=== PATIENT | female | born 1970 | race Hispanic/Latino ===

== ENCOUNTER 2017-10-08 23:14 | Emergency (ER) | payer MEDICAID, OTHER ==
[2017-10-09] MEDS ORDERED: ONDANSETRON HCL MDV 20ML 2 MG/ML VIAL ONE (00:17)
[2017-10-09] MEDS ORDERED: MORPHINE SULFATE 8 MG/ML VIAL ONE (00:18)
[2017-10-09 00:26] LABS: BASOPHILS % (AUTO) 0.3 % (0.0-5.0); EOSINOPHILS % (AUTO) 1.2 % (0.0-8.0); HEMATOCRIT 31.5 % (36-48); LYMPHOCYTES % (AUTO) 26.7 % (21.0-51.0); MEAN CORPUSCULAR HEMOGLOBIN 25.3 pg (27.0-33.0); MEAN CORPUSCULAR HGB CONC 32.2 g/dL (32.0-36.0); MEAN CORPUSCULAR VOLUME 78.3 fL (79-99); MONOCYTES % (AUTO) 7.3 % (3.0-13.0); NEUTROPHILS % (AUTO) 64.5 % (40.0-77.0); PLATELET COUNT (AUTO) 259 K/uL (130-400); RED BLOOD CELL COUNT(AUTO) 4.02 MIL/uL (4.00-5.50); WHITE BLOOD COUNT (AUTO) 12.7 K/uL (4.8-10.8)
[2017-10-09 00:31] LABS: CREATININE 0.7 mg/dL (0.5-1.5); POTASSIUM 3.4 mmol/L (3.5-5.1)
[2017-10-09 00:34] LABS: INR 0.91 (0.85-1.15); PARTIAL THROMBOPLASTIN TIME 26.1 SEC (26.3-35.5); PROTHROMBIN TIME 9.6 SEC (9.6-11.6)
[2017-10-09 00:35] LABS: ALBUMIN 3.4 g/dL (3.5-5.0); BILIRUBIN,TOTAL 0.1 mg/dL (0.2-1.0); TOTAL PROTEIN, SERUM 7.3 g/dL (6.0-8.3)
[2017-10-09] MEDS ORDERED: POTASSIUM BICARB/CIT AC 25 MEQ TABLET.EFF ONE (01:28)
== END 2017-10-09 02:50 | disposition home or self-care (01) ==
LOC: EDH 23:14
DX: R51 Headache (principal); M54.2 Cervicalgia; R79.1 Abnormal coagulation profile
CPT/HCPCS: 36415; 70450; 80053; 83690; 85025; 85610; 85730; 96374; 96375; 99285; J2270

== ENCOUNTER 2017-10-10 12:48 | Emergency (ER) | payer MEDICAID, OTHER | END 2017-10-10 13:33 | disposition home or self-care (01) | LOC: EDH 12:48 | DX: G51.0 Bell's palsy (principal); Z79.899 Other long term (current) drug therapy; Z98.51 Tubal ligation status ==

== ENCOUNTER 2020-06-11 23:51 | Emergency (ER) | payer MEDICAID, OTHER ==
[2020-06-12 01:03] LABS: BASOPHILS % (AUTO) 0.4 % (0.0-5.0); EOSINOPHILS % (AUTO) 1.4 % (0.0-8.0); LYMPHOCYTES % (AUTO) 27.3 % (21.0-51.0); MEAN CORPUSCULAR HEMOGLOBIN 24.2 pg (27.0-33.0); MEAN CORPUSCULAR HGB CONC 30.9 g/dL (32.0-36.0); MEAN CORPUSCULAR VOLUME 78.5 fL (79-99); MONOCYTES % (AUTO) 7.2 % (3.0-13.0); NEUTROPHILS % (AUTO) 63.2 % (40.0-77.0); PLATELET COUNT (AUTO) 259 K/uL (130-400); RED BLOOD CELL COUNT(AUTO) 4.46 MIL/uL (4.00-5.50); RED CELL DISTRIBUTION WIDTH 20.9 % (11.0-15.5)
[2020-06-12 01:12] LABS: CREATININE 0.8 mg/dL (0.5-1.5); POTASSIUM 4.2 mmol/L (3.5-5.1)
[2020-06-12 01:16] LABS: ALBUMIN 3.5 g/dL (3.5-5.0); BILIRUBIN,TOTAL 0.1 mg/dL (0.2-1.0); TOTAL PROTEIN, SERUM 7.5 g/dL (6.0-8.3)
[2020-06-12 01:20] LABS: AMPHET/METH SCREEN,URINE NEGATIVE (NEGATIVE); BARBITURATE SCREEN, URINE NEGATIVE (NEGATIVE); BENZODIAZEPINES SCREEN,URINE NEGATIVE (NEGATIVE); CANNABINOID SCREEN,URINE NEGATIVE (NEGATIVE); COCAINE SCREEN,URINE NEGATIVE (NEGATIVE); OPIATE SCREEN,URINE NEGATIVE (NEGATIVE); PHENCYCLIDINE SCREEN,URINE NEGATIVE (NEGATIVE)
[2020-06-12] MEDS ORDERED: DEXAMETHASONE SOD PHOSPHATE 10MG/ML 1ML VIAL ONE (01:25)
== END 2020-06-12 03:46 | disposition home or self-care (01) ==
LOC: EDH 23:51
DX: S46.012A Strain of muscle(s) and tendon(s) of the rotator cuff of left shoulder, initial encounter (principal); S46.812A Strain of other muscles, fascia and tendons at shoulder and upper arm level, left arm, initial encounter; X58.XXXA Exposure to other specified factors, initial encounter; Y93.89 Activity, other specified; Y92.89 Other specified places as the place of occurrence of the external cause; Y99.8 Other external cause status
CPT/HCPCS: 71045; 73030; 93005; 96374; 99284; J1100

== ENCOUNTER 2021-09-01 12:04 | Emergency (ER) | payer OTHER ==
[~2021-09-01] VITALS: Ht 154.9 cm; Wt 99.8 kg
[2021-09-01] MEDS ORDERED: AMOX/CLAV 875/125MG TAB PO ONE (12:30)
[2021-09-01] MEDS ORDERED: ALBUTEROL INHALER 90MCG/INH IH PRN (12:30)
[2021-09-01] MEDS ORDERED: AZITHROMYCIN 250 MG TABLET PO ONE (12:30)
[2021-09-01] MEDS ORDERED: ACETAMINOPHEN WITH CODEINE 1 TAB TAB PO ONE (12:30)
[2021-09-01] MEDS ORDERED: OSELTAMIVIR PHOSPHATE 75 MG CAP ONE (13:35)
[2021-09-01] MEDS ORDERED: ALBU8.5H8 IH (13:37)
[2021-09-01] MEDS ORDERED: OSEL75 PO (13:37)
[2021-09-01] MEDS ORDERED: AMOX1TAB16 PO (13:37)
[2021-09-01] MEDS ORDERED: D-ME1POW16 PO (13:37)
[2021-09-01 13:53] VITALS: BP 125/78
[2021-09-01] MEDS ORDERED: OSELTAMIVIR PHOSPHATE 75 MG CAP PO SCH (14:00)
== END 2021-09-01 13:55 | disposition home or self-care (01) ==
LOC: EDH 12:04
DX: J10.1 Influenza due to other identified influenza virus with other respiratory manifestations (principal); E86.0 Dehydration; Z20.822 Contact with and (suspected) exposure to COVID-19; Z79.899 Other long term (current) drug therapy; Z98.890 Other specified postprocedural states
CPT/HCPCS: 71045; 87635; 87804 ×2; 99284; C9803

== ENCOUNTER 2025-04-13 10:40 | Emergency (ER) | payer BC ==
[~2025-04-13] VITALS: Ht 154.9 cm; Wt 104.3 kg
[~2025-04-13 10:40] MED LIST: ALBU8.5H8 IH; AMOX1TAB16 PO; D-ME1POW16 PO; LOSA-418 PO
[2025-04-13 10:50] VITALS: BP 169/86; PULSE 88; RESP 18; TEMP 97.8; O2SAT 98
--- NOTE | 2025-04-13 10:50 | NUR ---
PT IN ROOM
--- NOTE | 2025-04-13 11:07 | ERN ---
ED Note History of Present Illness Stated Complaint: STAPLE REMOVAL Chief Complaint: Suture/Staple Removal Time Seen by MD: 10:45 Time Seen by Midlevel: 10:48 Dictation: 55-year-old female with no past medical history coming in for staple removal status post laparoscopic cholecystectomy. Surgery was done 03/31/2025. Patient states surgery was sent here by Dr. Pace. Denies having any drainage, pain, fevers, nausea or vomiting. Allergies: Coded Allergies: No Known Drug Allergies (Unverified Allergy, 09/27/11) Home Meds Active Scripts Amoxicillin/Potassium Clav (Amox Tr-K Clv 875-125 mg Tab) 875 Mg-125 Mg Tablet, 1 TAB PO BID for 6 Days, #20 TAB 0 Refills Prov:BRANDONTERENCEAlexanderSALMA DIRECTOR HRIS 04/03/25 Losartan Potassium (Cozaar) 50 Mg Tablet, 50 MG PO DAILY, #60 TAB Prov:SALMA KIM DIRECTOR HRIS 04/03/25 D-Methorphan/PE/Acetaminophen (Theraflu Ms Severe Cold Pckt) 1 Each Powd.pack, 1 EACH PO QIDP, #20 PACK Prov:NABIL BUCKLEY 09/01/21 Albuterol Sulfate (Proair Hfa) 8.5 Gm Hfa.aer.ad, 2 PUFF IH QIDP, #1 INHALER Prov:NABIL BUCKLEY 09/01/21 Past Medical History Past Medical History: Diabetes-Type II, Gallstones, High Cholesterol, Hypertension Additional Past Medical Hx: Obesity Surgical History: Hysterectomy, Cholecystectomy Surgical History Other: SALPINGO, tubal ligation Family History: Negative Social History: Negative Review of System Dictation Constitutional: Negative for fever,chills, and weight loss Eyes: Negative for injury, pain,redness, and discharge ENT: Negative for injury,pain or swelling Cardiovascular: Negative for chest pain, palpitations, and edema Respiratory: Negative for shortness of breath, cough, and wheezing, Abdomen/GI: Negative for abdominal pain, nausea, vomiting, diarrhea, and constipation Back: Negative for injury and pain : Negative for injury, bleeding and discharge MS/Extremity: Negative for injury and deformity Skin: Negative for rash, and discoloration, surgical balwinder in place from laparoscopic cholecystectomy Neuro: Negative for headache, weakness, numbness, tingling, and seizure Psych: Negative for suicide ideation, homicidal ideation, and hallucinations Review of Systems: was completed Initial Vital Sign VS Vital Signs Date Time Temp Pulse Resp B/P (MAP) Pulse Ox O2 Delivery O2 Flow Rate FiO2 04/13/25 10:41 97.9 88 18 169/86 98 Room Air 0 Physical Exam Dictation General: awake, alert, NAD Head/Face: Normocephalic, atraumatic Eyes: PERRL, EOMI, vision at baseline ENT: oral cavity clear, TMs clear, no signs of infection Neck: Trachea midline, supple, no nuchal rigidity Cardiovascular: RRR, normal S1/S2, No MRGs, no JVD Respiratory: CTAB, no respiratory distress, No rales or wheezes Abdomen: Soft, non-tender, non-distended, normal bowel sounds, no guarding or rebound. Skin: Warm, dry, normal turgor, no rash, surgical incisions intact, no redness, no drainage, no signs of any infection. There is a scab to the umbilical incision. MS/Extremity: Pulses equal, no cyanosis, neurovascular intact, FROM Neuro: COAx4, GCS 15, strength 5/5, CN 2-12 intact, normal cerebellar exam, normal gait, Psych: Normal behavior, mood, and affect normal ED Course ED Course Vital Signs Date Time Temp Pulse Resp B/P (MAP) Pulse Ox O2 Delivery O2 Flow Rate FiO2 04/13/25 10:41 97.9 88 18 169/86 98 Room Air 0 Medical Decision Making MDM MDM: 55-year-old female with no past medical history coming in for staple removal status post laparoscopic cholecystectomy. Surgery was done 03/31/2025. Patient states surgery was sent here by Dr. Pace. Denies having any drainage, pain, fevers, nausea or vomiting. In total 11 balwinder were removed. Area was cleaned with a wound cleanser. Patient states she is still taking the antibiotics prescribed, educated to continue taking the antibiotic, keep the incision clean and dry and follow up with the surgeon when scheduled. Patient verbalized understanding, answered all questions. Differential diagnosis: Embedded suture, surgical incision infection, wound dehiscence Rationale: Tests considered and ordered secondary to shared decision making include: Previous outside records reviewed: Old ER visits. Risk of complication and/or morbidity or mortality of patient management: None Medications-Per medication reconciliation Need for hospitalization: Patient does not meet criteria for hospitalization. Need for emergency major/minor surgery: No There are no social concerns with this patient. Prescription drug management Prescriptions will include symptomatic care Patient's prior external medical records from other ER visits were reviewed by me as indicated. Prior testing and results from previous visits were reviewed. Prior tests were taken into account with medical decision making and resource utilization, independent historian/historians were used to obtain complete medical history. I independently interpreted the test that were performed, results were reviewed by me and considered findings on radiology if ordered. Medical management and examination interpretation discussions were had by me with other qualified healthcare professionals as indicated for the patient's care. DX & DISP Disposition: Discharge Departure Impression: Primary Impression: Removal of staple Condition: Stable Additional Instructions: Siga tomando el antibiotico. limpiar la heridas con jabon y agua. Mantener la heridas seca. Sigua con mcleod cirujano . Referrals: SELF,REFERRAL (PCP) Time of Disposition: 11:06 I have reviewed the case, and I agree with, Diagnosis and Plan GABRIELA [facility] Apr 13, 2025 11:07
== END 2025-04-13 11:14 | disposition home or self-care (01) ==
LOC: EDH 10:40
DX: Z48.815 Encounter for surgical aftercare following surgery on the digestive system (principal); E11.9 Type 2 diabetes mellitus without complications; E66.9 Obesity, unspecified; E78.00 Pure hypercholesterolemia, unspecified; I10 Essential (primary) hypertension; Z79.899 Other long term (current) drug therapy; Z90.49 Acquired absence of other specified parts of digestive tract; Z90.710 Acquired absence of both cervix and uterus
CPT/HCPCS: 99282